=== PATIENT | female | born 1990 | race Caucasian/White ===

== ENCOUNTER 2016-12-06 01:43 | Emergency (ER) | payer BC, MEDICAID ==
[~2016-12-06] VITALS: Ht 170.2 cm; Wt 81.6 kg
[2016-12-06 01:58] VITALS: BP_SYST 107
--- NOTE | 2016-12-06 02:30 | NUR ---
Placed in room 08 . Placed on monitor technician, blood pressure machine and pulse oximeter. To gown for exam. Side rails up. Report given to ARMAAN Lawson.
--- NOTE | 2016-12-06 02:34 | NUR ---
Pelvic exam performed by ER MD Durham with Lulu RN at bedside for entire examination. Patient tolerated procedure well. Patient assisted to position of comfort after examination.
--- NOTE | 2016-12-06 02:35 | NUR ---
Patient to ER stating that 3-4 hours prior she believes that she inserted a tampon but now she is unable to "find it" Denies discharge other than normal period flow. Denies pain. AAOx4, unlabored breathing, no signs of acute distress.
[2016-12-06 02:58] VITALS: BP_SYST 110
--- NOTE | 2016-12-06 02:58 | NUR ---
Patient given written and verbal discharge instructions and verbalizes understanding. ER MD Durham discussed with patient the results and treatment provided. Patient in stable condition. ID arm band removed. Patient educated on pain management and to follow up with PMD. Pain Scale 0/10. Opportunity for questions provided and answered.
== END 2016-12-06 02:58 | disposition home or self-care (01) ==
LOC: SED 01:43
DX: T19.2XXA Foreign body in vulva and vagina, initial encounter (principal); J45.909 Unspecified asthma, uncomplicated; X58.XXXA Exposure to other specified factors, initial encounter; Y93.89 Activity, other specified; Y92.89 Other specified places as the place of occurrence of the external cause; Y99.8 Other external cause status
CPT/HCPCS: 99281